=== PATIENT | female | born 1975 | race Caucasian/White ===

== ENCOUNTER 2019-05-13 14:55 | Emergency (ER) | payer OTHER ==
[~2019-05-13] VITALS: Ht 167.6 cm; Wt 84.8 kg
[2019-05-13 15:08] VITALS: BP 133/86
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
[2019-05-13] MEDS ORDERED: ROBAXIN-500MG ORAL (15:59)
[2019-05-13] MEDS ORDERED: IBU800 MG PO (15:59)
[2019-05-13] MEDS ORDERED: Ketorolac 30mg Inj IM ONE (16:00)
--- NOTE | 2019-05-13 16:10 | NUR ---
ER DISCHARGE NOTE:right arm sling placed on arm Patient is cleared to be discharged per ERMD, pt is aox4, on room air, with stable vital signs. pt was given dc and prescription instructions, pt was able to verbalize understanding, pt is able to ambulate with steady gait. pt took all belongings.
[2019-05-13 16:18] VITALS: BP 133/86
== END 2019-05-13 16:18 | disposition home or self-care (01) ==
LOC: EMR 15:44
DX: S50.11XA Contusion of right forearm, initial encounter (principal); I10 Essential (primary) hypertension; V43.62XA Car passenger injured in collision with other type car in traffic accident, initial encounter; Y92.410 Unspecified street and highway as the place of occurrence of the external cause
CPT/HCPCS: 29125; 73090; 96372; 99283; J1885